=== PATIENT | male | born 1995 | race Caucasian/White ===

== ENCOUNTER → 2016-12-22 | Outpatient (CLI) | payer SELFPAY ==
--- NOTE | 2016-12-22 10:02 | DIREP ---
PROCEDURE:XRAY HAND MIN 3 VW-RT COMPARISON:None. INDICATIONS:PAIN SWELLING RIGHT HAND FINDINGS: BONES:There are fractures at the bases of the 4th and 5th metacarpals JOINTS:Normal. SOFT TISSUES:Normal. OTHER:No additional findings. CONCLUSION:Fractures at the bases of the 4th and 5th met[address]als[address] CT scan may be helpful for better demonstration of the fractures. Dictated by: Brian Powell M.D. on 12/22/2016 at 09:56 AM
== END | disposition home or self-care (01) ==
LOC: RAD 09:06
PROVIDERS: ATTEND Nurse Practitioner Family
DX: S62.304A Unspecified fracture of fourth metacarpal bone, right hand, initial encounter for closed fracture (principal); S62.306A Unspecified fracture of fifth metacarpal bone, right hand, initial encounter for closed fracture; X58.XXXA Exposure to other specified factors, initial encounter; Y93.89 Activity, other specified; Y92.89 Other specified places as the place of occurrence of the external cause; Y99.8 Other external cause status
CPT/HCPCS: 73130-RT